=== PATIENT | male | born 1950 | race Caucasian/White ===

== ENCOUNTER 2019-06-20 13:21 | Outpatient (CLI) | payer OTHER ==
[~2019-06-20] VITALS: Ht 182.9 cm; Wt 82.0 kg
[2019-06-20 13:30] VITALS: BP 146/72
[2019-06-20 14:20] VITALS: BP 129/82
[2019-06-20] MEDS ORDERED: OMALIZUMAB 150 MG (XOLAIR) VIAL (J2357 PER 5MG) SC ONE (15:00)
[2019-06-20] MEDS ORDERED: ALB2.5NEB NEB (16:55)
[2019-06-20] MEDS ORDERED: SILD100T PO (16:55)
[2019-06-20] MEDS ORDERED: DIGO0.12 PO (16:55)
[2019-06-20] MEDS ORDERED: METO1TAB87 PO (16:55)
[2019-06-20] MEDS ORDERED: SPIR1CAP INH (16:55)
[2019-06-20] MEDS ORDERED: MONT10TA2 PO (16:55)
[2019-06-20] MEDS ORDERED: COLC1TAB14 PO (16:55)
[2019-06-20] MEDS ORDERED: SPIR-10 PO (16:55)
[2019-06-20] MEDS ORDERED: AZEL1SPR3 NARES (16:55)
[2019-06-20] MEDS ORDERED: SYMB16INH INH (16:55)
[2019-06-20] MEDS ORDERED: FURO80TA2 PO (16:55)
== END 2019-06-20 14:30 | disposition home or self-care (01) ==
LOC: M INFU 13:21
PROVIDERS: ATTEND Internal Medicine Pulmonary Disease
DX: J45.50 Severe persistent asthma, uncomplicated (principal)

== ENCOUNTER 2019-07-18 13:53 | Outpatient (CLI) | payer OTHER ==
[~2019-07-18] VITALS: Ht 177.8 cm; Wt 82.0 kg
[~2019-07-18 13:53] MED LIST: ALB2.5NEB NEB; AZEL1SPR3 NARES; COLC1TAB14 PO; DIGO0.12 PO; FURO80TA2 PO; METO1TAB87 PO; MONT10TA2 PO; SILD100T PO; SPIR-10 PO; SPIR1CAP INH; SYMB16INH INH
[2019-07-18 14:00] VITALS: BP 139/79
[2019-07-18 14:49] VITALS: BP 119/72
[2019-07-18] MEDS ORDERED: OMALIZUMAB 150 MG (XOLAIR) VIAL (J2357 PER 5MG) SC ONE (15:00)
== END 2019-07-18 14:55 ==
LOC: M INFU 13:53
PROVIDERS: ATTEND Internal Medicine Pulmonary Disease
DX: J45.50 Severe persistent asthma, uncomplicated (principal)

== ENCOUNTER 2020-04-02 08:48 | Outpatient (CLI) | payer OTHER ==
[~2020-04-02] VITALS: Ht 175.3 cm; Wt 79.5 kg
[~2020-04-02 08:48] MED LIST changes: -DIGO0.12 PO; +DIGO0.123 PO; -MONT10TA2 PO; +MONT10TA4 PO
[2020-04-02 08:55] VITALS: BP 151/71
[2020-04-02] MEDS ORDERED: OMALIZUMAB 150MG 1ML SYRINGE (XOLAIR) (J2357 PER 5MG) SQ ONE (09:00)
[2020-04-02 09:20] VITALS: BP 134/67
== END 2020-04-02 09:30 | disposition home or self-care (01) ==
LOC: M INFU 08:48
PROVIDERS: ATTEND Internal Medicine Pulmonary Disease
DX: J45.50 Severe persistent asthma, uncomplicated (principal)

== ENCOUNTER 2020-04-30 08:52 | Outpatient (CLI) | payer OTHER ==
[~2020-04-30] VITALS: Ht 175.3 cm; Wt 79.5 kg
[2020-04-30 09:00] VITALS: BP 132/69
[2020-04-30] MEDS ORDERED: OMALIZUMAB 150MG 1ML SYRINGE (XOLAIR) (J2357 PER 5MG) SQ ONE (09:15)
[2020-04-30 09:30] VITALS: BP 132/66
== END 2020-04-30 09:30 | disposition home or self-care (01) ==
LOC: M INFU 08:52
PROVIDERS: ATTEND Internal Medicine Pulmonary Disease
DX: J45.50 Severe persistent asthma, uncomplicated (principal)

== ENCOUNTER 2021-06-13 14:19 | Outpatient (CLI) | payer MEDICARE ==
[~2021-06-13] VITALS: Ht 172.7 cm; Wt 79.5 kg
[~2021-06-13 14:19] MED LIST changes: +MONT10TA10 PO; -MONT10TA4 PO
[2021-06-13] MEDS ORDERED: OMALIZUMAB 150MG 1ML SYRINGE (XOLAIR) (J2357 PER 5MG) SQ ONE (14:30)
[2021-06-13 14:40] VITALS: BP 132/66
[2021-06-13 15:00] VITALS: BP 122/62
== END 2021-06-13 15:00 | disposition home or self-care (01) ==
LOC: M INFU 14:19
PROVIDERS: ATTEND Internal Medicine Pulmonary Disease
DX: J45.50 Severe persistent asthma, uncomplicated (principal)

== ENCOUNTER 2021-07-11 14:28 | Outpatient (CLI) | payer MEDICARE ==
[~2021-07-11] VITALS: Ht 177.8 cm; Wt 84.0 kg
[2021-07-11 13:40] VITALS: BP 125/58
[2021-07-11] MEDS ORDERED: OMALIZUMAB 150MG 1ML SYRINGE (XOLAIR) (J2357 PER 5MG) SQ ONE (14:30)
== END 2021-07-11 14:55 | disposition home or self-care (01) ==
LOC: M INFU 14:28
PROVIDERS: ATTEND Internal Medicine Pulmonary Disease
DX: J45.50 Severe persistent asthma, uncomplicated (principal)

== ENCOUNTER 2022-04-19 10:43 | Outpatient (CLI) | payer MEDICARE, OTHER ==
[~2022-04-19] VITALS: Ht 176.5 cm; Wt 78.1 kg
[~2022-04-19 10:43] MED LIST changes: -MONT10TA10 PO; +MONT10TA97 PO; +OMALIZUMAB 150MG 1ML SYRINGE (XOLAIR) SC ONE
[2022-04-19 10:45] VITALS: BP 138/68
[2022-04-19] MEDS ORDERED: CLOP75TA2 PO (10:53)
== END 2022-04-19 11:10 | disposition home or self-care (01) ==
LOC: M INFU 10:43
PROVIDERS: ATTEND Internal Medicine Pulmonary Disease
DX: J45.50 Severe persistent asthma, uncomplicated (principal)
CPT/HCPCS: 96372; J2357

== ENCOUNTER 2022-05-17 10:55 | Outpatient (CLI) | payer MEDICARE ==
[~2022-05-17] VITALS: Ht 177.8 cm; Wt 84.0 kg
[2022-05-17 10:55] VITALS: BP 132/64
[~2022-05-17 10:55] MED LIST changes: +CLOP75TA2 PO
[2022-05-17] MEDS ORDERED: OMALIZUMAB 150MG 1ML SYRINGE (XOLAIR) SC ONE (11:10)
== END 2022-05-17 11:30 | disposition home or self-care (01) ==
LOC: M INFU 10:55
PROVIDERS: ATTEND Internal Medicine Pulmonary Disease
DX: J45.50 Severe persistent asthma, uncomplicated (principal)
CPT/HCPCS: 96372; J2357

== ENCOUNTER 2023-06-20 15:40 | Outpatient (CLI) | payer MEDICARE ==
[~2023-06-20] VITALS: Ht 177.8 cm; Wt 84.0 kg
[2023-06-20 15:50] VITALS: BP 147/97; O2SAT 94
== END 2023-06-20 16:15 ==
LOC: M INFU 15:40
PROVIDERS: ATTEND Internal Medicine Pulmonary Disease
DX: J45.50 Severe persistent asthma, uncomplicated (principal)
CPT/HCPCS: 96372; J2357